=== PATIENT | female | born 1960 | race Caucasian/White ===

== ENCOUNTER 2016-11-23 18:51 | Emergency (ER) ==
[2016-11-23 19:23] VITALS: BP 130/75
[2016-11-23] MEDS ORDERED: ZOFRAN ODT PO ONE (20:38)
[2016-11-23] MEDS ORDERED: NORCO-10 PO ONE (20:38)
--- NOTE | 2016-11-23 20:43 | PROVIDER DOCUMENTATION ---
HPI-General Adult - General Chief Complaint: Extremity Pain Stated Complaint: LEGS PAIN Time Seen by Provider: 11/23/16 20:18 Source: patient Allergies/Adverse Reactions: Patient Allergies Allergy/AdvReac Type Severity Reaction Status Date / Time naproxen Allergy Unknown Verified 05/26/16 13:01 ibuprofen AdvReac ITCHING Verified 04/03/16 09:14 Home Medications: Home Medication List Medication Instructions Recorded Confirmed Last Taken Type Acetaminophen [Tylenol] 500 mg PO Q6H PRN PRN #30 tablet 09/24/16 Unknown Rx Acetaminophen/Diphenhydramine 1 each PO Q4-6H PRN PRN #14 tablet 09/24/16 Unknown Rx [Percogesic Extra Str Caplet] Gabapentin 600 mg PO TID #90 tablet 10/19/16 Unknown Rx Olmesartan Medoxomil [Benicar] 20 mg PO DAILY #30 tablet 10/19/16 Unknown Rx Sitagliptin Phos/Metformin HCl 1 each PO 4XDAY #60 tablet 10/19/16 Unknown Rx [Janumet 50-1,000 mg Tablet] Tramadol [Ultram] 50 mg PO BID #20 tablet 10/19/16 Unknown Rx - History of Present Illness -Gen Adult Nature of Presenting Problems: This pt, who has a of diabetic neuropathy, presents today c complaints of nerve pain. She reports that her doctor typically writes her Ultram and [place] 10 along with Gabapentin for the pain. She states that her PCP is currently out of town and she needs a refill of her Norcos. She states that this is her typical nerve pain. No other issues or complaints. Location of Pain/Injury: reports: lower extremity Quality of Pain: reports: aching, burning Severity: reports: moderate Onset/Duration: reports: other (chronic) Timing: reports: still present Modifying Factors: improves with: nothing Similar Symptoms Previously?: Yes Recently seen or treated by another doctor?: Yes Review of Systems - Adult - REVIEW OF SYSTEMS - ADULT Constitutional: reports: no symptoms reported. denies: chills, fatique Eyes: reports: no symptoms reported. denies: discharge, dry eyes Ears, Nose, Mouth & Throat: reports: no symptoms reported. denies: ear discharge, ear pain Cardiovascular: reports: no symptoms reported. denies: chest pain, edema Respiratory: reports: no symptoms reported. denies: chronic cough, cough Gastrointestinal: reports: no symptoms reported. denies: abdominal pain, hematemesis Genitourinary: reports: no symptoms reported. denies: dysuria, discharge Musculoskeletal: reports: see HPI. denies: bone pain, back pain Integumentary: reports: no symptoms reported. denies: mole changes, nail changes Neurological: reports: no symptoms reported. denies: ataxia, dizziness/vertigo Psychiatric: reports: no symptoms reported Endocrine: reports: no symptoms reported Hematologic/Lymphatic: reports: no symptoms reported Allergic/Immunologic: reports: no symptoms reported All Other Systems: Reviewed and Negative Past History - Adult - PAST MEDICAL HISTORY-ADULT Review of Records: reports: Old Records Reviewed, Nursing Assessment Review, Medications Reviewed, Social history reviewed & non-contributory. Major Childhood Illnesses: reports: denies history Cardiovascular: reports: HTN Respiratory: reports: COPD Gastrointestinal: reports: denies history Obstetrical/Gynecological: reports: denies history Genitourinary: reports: denies history Musculoskeletal: reports: arthritis Neurological: reports: other (neuropathy ) Psychiatric: reports: bipolar Endocrine/Immune: reports: Diabetes Other Conditions: reports: denies history - PRIOR SURGERIES/PROCEDURES Surgical/Procedure History: reports: reviewed, not pertinent - IMMUNIZATION STATUS Childhood Immunizations: See Nurse Assessment Flu Vaccine: See Nurse Assessment - FAMILY HISTORY Family History: reviewed, not pertinent Physical Exam-General - PHYSICAL EXAM-ADULT Initial Vital Signs Reviewed: Yes - CONSTITUTIONAL General Appearance: appears well, alert, no apparent distress - EYES Eyes: PERRL/EOMI, pink conjunctivae - HEAD, EARS, NOSE, MOUTH & THROAT HENMT: normocephalic/atraumatic, moist mucous membranes, normal ENT inspection - NECK Neck: non-tender, full range of motion - RESPIRATORY Respiratory: chest non-tender, lungs clear, normal breath sounds - CARDIOVASCULAR Cardiovascular: normal peripheral pulses, regular rate, rhythm (94 manual) - GASTROINTESTINAL (ABDOMEN) Abdominal Exam: normal bowel sounds, non tender, soft - MUSCULOSKELETAL Back Exam: normal inspection, no CVA tenderness, no vertebral tenderness Extremity: normal range of motion, non-tender, normal gait, normal inspection. negative: deformity, swelling, tenderness - SKIN Integumentary: normal color, normal turgor, warm/dry - NEUROLOGIC Neurologic: grossly normal, no motor/sensory deficits. negative: facial droop, focal weakness, motor weakness, sensory deficit - PSYCHIATRIC Psych/Mental Status: normal mood/affect, normal thought content, normal thought process, oriented x 3 Progress - PLAN OF CARE/RESULTS Progress/Plan/Lab Results: Orders Category Date Time Status Hydrocodone/APAP 10 mg/325 mg [Elgin-10] Med 11/23/16 20:38 Discontinued 1 each PO NOW ONE Ondansetron Odt [Zofran Odt] Med 11/23/16 20:38 Discontinued 4 mg PO NOW ONE Vital Signs Temp Pulse Resp BP Pulse Ox 11/23/16 19:20 97.7 F 113 H 16 130/75 98 naproxen Allergy (Verified 05/26/16 13:01) Unknown ibuprofen Adverse Reaction (Verified 04/03/16 09:14) ITCHING Acetaminophen [Tylenol] 500 mg PO Q6H PRN PRN #30 tablet 09/24/16 Acetaminophen/Diphenhydramine [Percogesic Extra Str Caplet] 1 each PO Q4-6H PRN PRN #14 tablet 09/24/16 Gabapentin 600 mg PO TID #90 tablet 10/19/16 Olmesartan Medoxomil [Benicar] 20 mg PO DAILY #30 tablet 10/19/16 Sitagliptin Phos/Metformin HCl [Janumet 50-1,000 mg Tablet] 1 each PO 4XDAY #60 tablet 10/19/16 Tramadol [Ultram] 50 mg PO BID #20 tablet 10/19/16 Discussed c pt that I would not refill her medications but I would give her something tonight. She was in agreement. Departure - Departure Time of Disposition Order: 20:42 DIAGNOSIS: Patient requests medication, not given Diabetic neuropathy Qualifiers: Diabetes mellitus type: type 2 Diabetes mellitus complication detail: diabetic polyneuropathy Qualified Code(s): E11.42 - Type 2 diabetes mellitus with diabetic polyneuropathy Disposition: HOME 01 Certified Medical Emergency: Urgent Condition: Good Additional Instructions: Follow up with your primary care provider for refill of your pain medications. ED Follow Up Instructions: You have been treated by a care provider in the Emergency Department. These instructions are being provided to you so you can have an understanding of how to care for yourself upon discharge. Upon discharge from the Emergency Department, you are responsible for making arrangements for follow-up care by a physician of your choice. Take all prescribed medications as directed. Return to the Emergency Department immediately for any new or worsening symptoms. You may call the Physician Referral phone number at [phone] to obtain a list of Physicians who are taking new patients. Attestation - Physician/ MAKSIM Attestation Patient care was provided by Advanced Practice Provider:: Yes Advanced Practice Provider:: Milton Wilks Advanced Practice Provider documentation review:: The Mid-level provider documentation, treatment plan and medical decision making was reviewed by the physician who agrees with all treatment and medical decision making by the MLP.
== END 2016-11-23 21:06 | disposition home or self-care (01) ==
LOC: ED 18:51
DX: E11.42 Type 2 diabetes mellitus with diabetic polyneuropathy (principal); M79.605 Pain in left leg; M79.604 Pain in right leg; I10 Essential (primary) hypertension; J44.9 Chronic obstructive pulmonary disease, unspecified; M19.90 Unspecified osteoarthritis, unspecified site